=== PATIENT | female | born 1965 | race Caucasian/White ===

== ENCOUNTER 2018-03-16 19:51 | Emergency (ER) | payer SELFPAY ==
--- NOTE | 2018-03-16 20:45 | ER Document Report ---
ED Syncope and Near Syncope - General Chief Complaint: Near Syncope Stated Complaint: FAINT FEELING Time Seen by Provider: 03/16/18 20:29 Notes: Patient is a 52-year-old female that comes to the emergency department by EMS for chief complaint of near syncope. She states she stood up from sitting down on the couch and suddenly she became lightheaded, her vision became blurry, her states she became very pale. This did pass on its own. Patient denies getting chest pain, shortness of breath, diaphoresis, nausea, or vomiting. Patient denies history of the same. She states she has been eating and drinking normally. Patient does not see a primary care provider, does not take any medications, however she is very healthy generally with good exercise, she does not smoke, she drinks minimal wine, she states her only diagnosed medical problem is history of anemia. She did donate blood last month. She denies any current symptoms. TRAVEL OUTSIDE OF THE [place] IN LAST 30 DAYS: No Past Medical History - General Information source: Patient - Social History Smoking Status: Never Smoker Chew tobacco use (# tins/day): No Drug Abuse: None Lives with: Family Family History: Reviewed & Not Pertinent Patient has suicidal ideation: No Patient has homicidal ideation: No - Medical History Medical History: Negative Renal/ Medical History: Denies: Hx Peritoneal Dialysis Surgical Hx: Negative - Immunizations Immunizations up to date: Yes Hx Diphtheria, Pertussis, Tetanus Vaccination: Yes Review of Systems - Review of Systems Constitutional: No symptoms reported EENT: No symptoms reported Cardiovascular: See HPI Respiratory: No symptoms reported Gastrointestinal: No symptoms reported Genitourinary: No symptoms reported Female Genitourinary: No symptoms reported Musculoskeletal: No symptoms reported Skin: No symptoms reported Hematologic/Lymphatic: No symptoms reported Neurological/Psychological: See HPI Physical Exam - Vital signs Vitals: Resp Pulse Ox 17 98 03/16/18 19:59 03/16/18 19:59 - Notes Notes: GENERAL: Alert, interacts well. No acute distress. HEAD: Normocephalic, atraumatic. EYES: Pupils equal, round, and reactive to light. Extraocular movements intact. ENT: Oral mucosa moist, tongue midline. Oropharynx unremarkable. Airway patent. Nares patent, no nasal septal hematoma, TM's intact. NECK: Full range of motion. Supple. Trachea midline. LUNGS: Clear to auscultation bilaterally, no wheezes, rales, or rhonchi. No respiratory distress. HEART: Regular rate and rhythm. No murmur ABDOMEN: Soft, non-tender. Non-distended. Bowel sounds present in all 4 quadrants. GENITOURINARY: Deferred EXTREMITIES: Moves all 4 extremities spontaneously. No edema, normal radial and dorsalis pedis pulses bilaterally. No cyanosis. BACK: no cervical, thoracic, lumbar midline tenderness. No saddle anesthesia, normal distal neurovascular exam. NEUROLOGICAL: Alert and oriented x3. Normal speech. [cranial nerves II through XII grossly intact]. PSYCH: Normal affect, normal mood. SKIN: Warm, dry, normal turgor. No rashes or lesions noted. Course - Re-evaluation Re-evalutation: Chest x-ray unremarkable. CBC, chemistry, troponin unremarkable. Vital signs unremarkable other than one initially low blood pressure reading but this was repeated and found to be normal. Patient able to stand without any repeat symptoms. No current symptoms on evaluation. Troponin cycled and negative. I discussed workup in detail with patient. Her workup at this time is negative, she did not have any concerning symptoms such as chest pain, vomiting, she did not actually pass out. She has had no additional symptoms. She is very healthy and fit. I did discuss the importance of primary care follow-up and patient did state the understanding of this. I discussed return precautions in detail with patient and . Stable at time of discharge. - Vital Signs Vital signs: Temp Pulse Resp BP Pulse Ox 98.2 F 94 20 123/73 97 03/16/18 20:01 03/16/18 20:01 03/16/18 23:01 03/16/18 23:01 03/16/18 23:01 - Laboratory Result Diagrams: 03/16/18 20:45 03/16/18 20:45 Laboratory results interpreted by me: 03/16/18 21:57 Urine Glucose (UA) 150 H Urine Ketones TRACE H Urine Ascorbic Acid 40 H - EKG Interpretation by Me Additional EKG results interpreted by me: EKG sinus rhythm at a rate of 98, normal axis, no T wave inversions or ST segment changes in consecutive leads. Discharge - Discharge Clinical Impression: Near syncope Condition: Stable Disposition: HOME, SELF-CARE Additional Instructions: Your workup here including complete blood counts, blood chemistries, cardiac enzymes, chest x-ray, and EKG, do not show any concerning acute findings. Recommendations caution with position changes. You most likely had vasovagal syncope. See additional instructions below. Follow-up with primary care for additional evaluation and monitoring. Return if you worsen including passing out, chest pain, vomiting, or any other concerning or worsening symptoms. Syncope (fainting or near-fainting) can occur from many different health problems. Or it can be a simple fainting spell requiring no treatment. It is safe for you to go home, but further evaluation will likely be necessary. Your work-up may include tests for internal bleeding, heart disease, medication problems, or near-strokes. Tests are not always required, however, depending on the nature of your problem. The warning signs of an impending faint include: dizziness, lightheadedness, nausea, hot flashes, tingling, and weakness. If this happens, lay down and put your feet up, then wait until all of these symptoms have passed before standing up again. If these episodes become recurrent, or if you develop chest pain, heart palpitations, mental confusion, blurred vision, or headache, then you should call the physician, or go to the emergency room.
[2018-03-16 21:00] LABS: ABSOLUTE BASOPHILS # (AUTO) 0.1 10^3/uL (0.0-0.2); ABSOLUTE EOSINOPHILS # (AUTO) 0.2 10^3/uL (0.0-0.6); ABSOLUTE LYMPHOCYTES (AUTO) 1.9 10^3/uL (0.5-4.7); ABSOLUTE MONOCYTES (AUTO) 0.8 10^3/uL (0.1-1.4); ABSOLUTE NEUT (AUTO) 5.1 10^3/uL (1.7-8.2); BASOPHILS % (AUTO) 0.9 % (0-2); HEMATOCRIT 37.4 % (36.0-47.0); LYMPHOCYTES % (AUTO) 24.2 % (13-45); MEAN CORPUSCULAR HEMOGLOBIN 31.3 pg (27.0-33.4); MEAN CORPUSCULAR HGB CONC 34.6 g/dL (32.0-36.0); MEAN CORPUSCULAR VOLUME 91 fl (80-97); MONOCYTES % (AUTO) 9.5 % (3-13); PLATELET COUNT 255 10^3/uL (150-450); RED BLOOD COUNT 4.14 10^6/uL (3.72-5.28); RED CELL DISTRIBUTION WIDTH 12.8 % (11.5-14.0); SEGMENTED NEUTROPHILS % (AUTO) 63.4 % (42-78); TOTAL CELLS COUNTED % (AUTO) 100 %
[2018-03-16 21:13] LABS: ANION GAP 7 (5-19); BLOOD UREA NITROGEN 16 mg/dL (7-20); CALCIUM 9.6 mg/dL (8.4-10.2); CARBON DIOXIDE 28 mmol/L (22-30); CHLORIDE 103 mmol/L (98-107); GLUCOSE 98 mg/dL (75-110); POTASSIUM 4.3 mmol/L (3.6-5.0); SODIUM 138.3 mmol/L (137-145)
--- NOTE | 2018-03-16 21:44 | RADIOLOGY REPORT (SQ) ---
EXAM DESCRIPTION: XR CHEST 1 VIEW COMPLETED DATE/TME: 03/16/2018 20:42 CLINICAL HISTORY: 52 years, Female, near syncope COMPARISON: None. NUMBER OF VIEWS: 1 TECHNIQUE: Portable chest LIMITATIONS: None. FINDINGS: Heart size is normal. Lungs are clear. No pneumothorax IMPRESSION: Negative chest copyright 2010 [employer]- All Rights Reserved
[2018-03-16 22:18] LABS: APPEARANCE,URINE SLIGHTLY-CLOUDY; BILIRUBIN,URINE NEGATIVE (NEGATIVE); GLUCOSE, URINE 150 mg/dL (NEGATIVE); KETONES,URINE TRACE mg/dL (NEGATIVE); LEUKOCYTE ESTERASE,URINE NEGATIVE (NEGATIVE); NITRITE,URINE NEGATIVE (NEGATIVE); PROTEIN,URINE NEGATIVE (NEGATIVE); URINE SPECIFIC GRAVITY 1.026; UROBILINOGEN,URINE NEGATIVE mg/dL (<2.0)
[2018-03-16 22:24] LABS: COLOR,URINE YELLOW
[2018-03-16 23:59] VITALS: BP 123/73
--- NOTE | 2018-03-17 23:51 | EKG REPORT ---
SEVERITY:- ABNORMAL ECG - SINUS RHYTHM PROBABLE LVH WITH SECONDARY REPOL ABNRM : Confirmed by: Helder Mckeon 17-Mar-2018 23:50:16
== END 2018-03-17 01:04 | disposition home or self-care (01) ==
LOC: ER 19:51
DX: R42 Dizziness and giddiness (principal); H53.8 Other visual disturbances
CPT/HCPCS: 36415; 71045; 80048; 81001; 84484; 85025; 93005; 93010; 99284

== ENCOUNTER 2018-06-30 14:26 | Emergency (ER) | payer SELFPAY ==
[2018-06-30] MEDS ORDERED: LORAZEPAM 1 MG TABLET PO ONE (14:46)
--- NOTE | 2018-06-30 14:49 | ER Document Report ---
ED Medical Screen (RME) - General Chief Complaint: Palpitations Stated Complaint: HEART RACING Time Seen by Provider: 06/30/18 14:43 TRAVEL OUTSIDE OF THE [place] IN LAST 30 DAYS: No - HPI Notes: 06/30/18 14:48 Patient is a 53-year-old female with history of anemia who presents complaining of intermittent palpitations for 4 months. Patient states that when they occur they will last for 1 to 2 minutes with associated dizziness. Patient's last episode was about an hour and a half ago. Patient states that she can go a long period time without palpitations as well. She is not aware of anything that pr ecipitates her symptoms. She otherwise is eating and drinking without difficult he. She is urinating normally. Patient is currently a cinematic aside from feeling anxious. Denies MADRIGAL, fever, neck pain, URI, CP, syncope, dyspnea on exertion, wheezing, SOB, Abd pain, or rash. I have treated and performed a rapid initial assessment of this patient. A comprehensive ED assessment and evaluation of the patient, analysis of test results and completion of medical decision making process will be conducted by additional ED providers. PHYSICAL EXAMINATION: GENERAL: Well-appearing, well-nourished and in no acute distress. A&Ox4. Answers questions appropriately. LUNGS: Breath sounds clear to auscultation bilaterally and equal. No wheezes rales or rhonchi. HEART: Regular rate and rhythm without murmurs, rubs, gallops. Extremities: No cyanosis, clubbing, or edema b/l. NEUROLOGICAL: Normal speech, normal gait. PSYCH: Anxious - Related Data Allergies/Adverse Reactions: No Known Allergies Allergy (Verified 06/30/18 14:26) Past Medical History Renal/ Medical History: Denies: Hx Peritoneal Dialysis - Immunizations Immunizations up to date: Yes Hx Diphtheria, Pertussis, Tetanus Vaccination: Yes Physical Exam - Vital signs Vitals: Temp Pulse Resp BP Pulse Ox 98.1 F 109 H 22 H 144/76 H 100 06/30/18 14:34 06/30/18 14:34 06/30/18 14:34 06/30/18 14:34 06/30/18 14:34 Course - Vital Signs Vital signs: Temp Pulse Resp BP Pulse Ox 98.1 F 109 H 22 H 144/76 H 100 06/30/18 14:34 06/30/18 14:34 06/30/18 14:34 06/30/18 14:34 06/30/18 14:34
[2018-06-30 15:39] LABS: ABSOLUTE EOSINOPHILS # (AUTO) 0.1 10^3/uL (0.0-0.6); ABSOLUTE LYMPHOCYTES (AUTO) 1.4 10^3/uL (0.5-4.7); ABSOLUTE MONOCYTES (AUTO) 0.5 10^3/uL (0.1-1.4); ABSOLUTE NEUT (AUTO) 4.3 10^3/uL (1.7-8.2); BASOPHILS % (AUTO) 0.6 % (0-2); EOSINOPHILS % (AUTO) 1.4 % (0-6); HEMATOCRIT 40.6 % (36.0-47.0); HEMOGLOBIN 13.5 g/dL (12.0-15.5); LYMPHOCYTES % (AUTO) 22.7 % (13-45); MEAN CORPUSCULAR HGB CONC 33.2 g/dL (32.0-36.0); MEAN CORPUSCULAR VOLUME 91 fl (80-97); MONOCYTES % (AUTO) 7.9 % (3-13); PLATELET COUNT 227 10^3/uL (150-450); RED BLOOD COUNT 4.48 10^6/uL (3.72-5.28); SEGMENTED NEUTROPHILS % (AUTO) 67.4 % (42-78); TOTAL CELLS COUNTED % (AUTO) 100 %; WHITE BLOOD COUNT 6.3 10^3/uL (4.0-10.5)
--- NOTE | 2018-06-30 15:44 | RADIOLOGY REPORT (SQ) ---
EXAM DESCRIPTION: CHEST SINGLE VIEW COMPLETED DATE/TIME: 06/30/2018 3:33 pm REASON FOR STUDY: palpitations COMPARISON: 03/16/2018 EXAM PARAMETERS: NUMBER OF VIEWS: One view. TECHNIQUE: Single frontal radiographic view of the chest acquired. RADIATION DOSE: NA LIMITATIONS: None. FINDINGS: LUNGS AND PLEURA: No opacities, masses or pneumothorax. No pleural effusion. MEDIASTINUM AND HILAR STRUCTURES: No masses. Contour normal. HEART AND VASCULAR STRUCTURES: Heart normal in size. Normal vasculature. BONES: No acute findings. HARDWARE: None in the chest. OTHER: No other significant finding. IMPRESSION: No acute abnormality of the lungs. TECHNICAL DOCUMENTATION: JOB ID: [id number] [employer]- All Rights Reserved Reading location - IP/workstation name: [email or web address]
[2018-06-30 15:56] LABS: ALANINE AMINOTRANSFERASE 18 U/L (9-52); ALBUMIN 4.5 g/dL (3.5-5.0); ALKALINE PHOSPHATASE 57 U/L (38-126); ANION GAP 13 (5-19); ASPARTATE AMINO TRANSFERASE 19 U/L (14-36); BILIRUBIN,DIRECT 0.2 mg/dL (0.0-0.4); BILIRUBIN,TOTAL 0.4 mg/dL (0.2-1.3); BLOOD UREA NITROGEN 13 mg/dL (7-20); CALCIUM 9.4 mg/dL (8.4-10.2); CARBON DIOXIDE 25 mmol/L (22-30); CHLORIDE 102 mmol/L (98-107); GLUCOSE 114 mg/dL (75-110); PHOSPHORUS 2.6 mg/dL (2.5-4.5); POTASSIUM 4.1 mmol/L (3.6-5.0); SODIUM 139.5 mmol/L (137-145); TOTAL PROTEIN 7.7 g/dL (6.3-8.2)
[2018-06-30 15:57] LABS: APPEARANCE,URINE CLEAR; BILIRUBIN,URINE NEGATIVE (NEGATIVE); COLOR,URINE STRAW; GLUCOSE, URINE NEGATIVE (NEGATIVE); KETONES,URINE NEGATIVE (NEGATIVE); LEUKOCYTE ESTERASE,URINE NEGATIVE (NEGATIVE); NITRITE,URINE NEGATIVE (NEGATIVE); PROTEIN,URINE NEGATIVE (NEGATIVE); URINE SPECIFIC GRAVITY 1.006; UROBILINOGEN,URINE NEGATIVE mg/dL (<2.0)
--- NOTE | 2018-06-30 16:22 | EKG REPORT ---
SEVERITY:- OTHERWISE NORMAL ECG - SINUS TACHYCARDIA NONSPECIFIC ST-T CHANGES : Confirmed by: Helder Mckeon 30-Jun-2018 16:20:44
[2018-06-30] MEDS ORDERED: METOPROLOL TARTRATE 25 MG TABLET PO ONE (19:53)
--- NOTE | 2018-06-30 20:04 | ER Document Report ---
ED General - General Chief Complaint: Palpitations Stated Complaint: HEART RACING Time Seen by Provider: 06/30/18 14:43 Notes: Patient is a 53-year-old female without chronic medical problems who presents with several weeks of intermittent palpitations. Patient states that she will randomly feel her heart is racing. States that nothing seems to trigger these episodes and they go away spontaneously. No obvious triggering factor. No obvious alleviating factor. She regards her symptoms as being severe when present. She states that she had an episode earlier today while relaxing at home without any stress. Episode lasted approximately 30 minutes and then spontaneously resolved. Patient denies any history of similar symptoms prior to the past several weeks. She denies any associated chest pain, shortness of breath, lightheadedness or syncope. No weakness, numbness or confusion. No stimulant use, alcohol use, tobacco use. Has not seen her general physician regarding today's concerns. Denies any symptoms at the time of my assessment. TRAVEL OUTSIDE OF THE [place] IN LAST 30 DAYS: No - Related Data Allergies/Adverse Reactions: No Known Allergies Allergy (Verified 06/30/18 14:26) Past Medical History - General Information source: Patient - Social History Smoking Status: Never Smoker Chew tobacco use (# tins/day): No Frequency of alcohol use: Rare Drug Abuse: None Lives with: Spouse/Significant other Family History: Reviewed & Not Pertinent Patient has suicidal ideation: No Patient has homicidal ideation: No Renal/ Medical History: Denies: Hx Peritoneal Dialysis - Immunizations Immunizations up to date: Yes Hx Diphtheria, Pertussis, Tetanus Vaccination: Yes Review of Systems - Review of Systems Notes: Constitutional: Negative for fever. HENT: Negative for sore throat. Eyes: Negative for visual changes. Cardiovascular: Negative for chest pain. Positive palpitations Respiratory: Negative for shortness of breath. Gastrointestinal: Negative for abdominal pain, vomiting or diarrhea. Genitourinary: Negative for dysuria. Musculoskeletal: Negative for back pain. Skin: Negative for rash. Neurological: Negative for headaches, weakness or numbness. 10 point ROS negative except as marked above and in HPI. Physical Exam - Vital signs Vitals: Temp Pulse Resp BP Pulse Ox 98.1 F 109 H 22 H 144/76 H 100 06/30/18 14:34 06/30/18 14:34 06/30/18 14:34 06/30/18 14:34 06/30/18 14:34 Interpretation: Normal Notes: PHYSICAL EXAMINATION: GENERAL: Well-appearing, well-nourished and in no acute distress. HEAD: Atraumatic, normocephalic. EYES: Pupils equal round and reactive to light, extraocular movements intact, sclera anicteric, conjunctiva are normal. ENT: nares patent, oropharynx clear without exudates. Moist mucous membranes. NECK: Normal range of motion, supple without lymphadenopathy LUNGS: Breath sounds clear to auscultation bilaterally and equal. No wheezes rales or rhonchi. HEART: Regular rate and rhythm without murmurs ABDOMEN: Soft, nontender, normoactive bowel sounds. No guarding, no rebound. No masses appreciated. EXTREMITIES: Normal range of motion, no pitting or edema. No cyanosis. NEUROLOGICAL: No focal neurological deficits. Moves all extremities spontaneously and on command. PSYCH: Normal mood, normal affect. SKIN: Warm, Dry, normal turgor, no rashes or lesions noted. Course - Re-evaluation Re-evalutation: 06/30/18 19:59 Patient presents with palpitations but is in no acute distress. Vitals within normal limits at time of arrival. EKG unremarkable with a sinus tachycardia. Laboratories are unremarkable. Patient denies any chest pain, shortness of breath, or vomiting. At this time based on exam and history do not suspect a new onset arrhythmia, ACS, acute pulmonary embolus, aortic dissection. Patient encouraged to follow-up with their primary care physician as well as cardiology and a referral has been provided. I have started her on metoprolol 12.5 mg twice daily at this time will discharge with return precautions and follow-up recommendations. Verbal discharge instructions given a the bedside and opportunity for questions given. Medication warnings reviewed. Patient is in agreement with this plan and has verbalized understanding of return precautions and the need for primary care follow-up in the next 24-72 hours. - Vital Signs Vital signs: Temp Pulse Resp BP Pulse Ox 98.1 F 109 H 23 H 119/62 98 06/30/18 14:34 06/30/18 14:34 06/30/18 19:41 06/30/18 19:41 06/30/18 19:41 - Laboratory Result Diagrams: 06/30/18 15:18 06/30/18 15:18 Laboratory results interpreted by me: 06/30/18 06/30/18 14:54 15:18 Glucose 114 H Urine Ascorbic Acid 40 H - Diagnostic Test Radiology reviewed: Image reviewed, Reports reviewed Radiology results interpreted by me: 06/30/18 19:59 Chest x-ray: No acute infiltrate or pneumothorax - EKG Interpretation by Me Additional EKG results interpreted by me: 06/30/18 20:00 Sinus tachycardia, rate 115. No ST elevations or depressions. QTC is 460. Discharge - Discharge Clinical Impression: Palpitations, Sinus tachycardia Condition: Good Disposition: HOME, SELF-CARE Additional Instructions: Please follow-up with your primary care doctor or a hard rock drill operator regarding your palpitations. Return if you develop chest pain, shortness of breath, pass out, or have any other symptoms that are worrisome to you. Take medication metoprolol as prescribed. Prescriptions: Metoprolol Tartrate [Lopressor 25 mg Tablet] 12.5 mg PO Q12 #30 tab Referrals: SANDIP HAMM MD [ACTIVE STAFF] - Follow up in 3-5 days
[2018-06-30 20:17] VITALS: BP 124/76
== END 2018-06-30 20:30 | disposition home or self-care (01) ==
LOC: ER 14:26
DX: R00.2 Palpitations (principal); R00.0 Tachycardia, unspecified
CPT/HCPCS: 36415; 71045; 80053; 81001; 83735; 84100; 84443; 85025; 93005; 93010; 99285

== ENCOUNTER 2018-07-23 20:11 | Emergency (ER) | payer OTHER ==
--- NOTE | 2018-07-23 21:09 | ER Document Report ---
ED Medical Screen (RME) - General Chief Complaint: Palpitations Stated Complaint: RAPID HEART BEAT Time Seen by Provider: 07/23/18 21:08 Notes: Patient is a 53-year-old female who presents emergency department with a chief complaint of palpitations. She states that she has had these and was seen on June 30 and was put on metoprolol for her palpitations. She states that she is taking her medications regularly and felt 3 episodes of heart palpitations today. She denies any chest pain, difficulty breathing, but does feel like she is going to "pass out." Exam: S1-S2, tachycardic. I have greeted and performed a rapid initial assessment of this patient. A comprehensive ED assessment and evaluation of the patient, analysis of test results and completion of medical decision making process will be conducted by an additional ED providers. TRAVEL OUTSIDE OF THE [place] IN LAST 30 DAYS: No - Related Data Allergies/Adverse Reactions: No Known Allergies Allergy (Verified 06/30/18 14:26) Past Medical History - Social History Chew tobacco use (# tins/day): No Frequency of alcohol use: None Drug Abuse: None Renal/ Medical History: Denies: Hx Peritoneal Dialysis - Immunizations Immunizations up to date: Yes Hx Diphtheria, Pertussis, Tetanus Vaccination: Yes Physical Exam - Vital signs Vitals: Temp Pulse Resp BP Pulse Ox 98.2 F 104 H 18 141/82 H 97 07/23/18 20:26 07/23/18 20:26 07/23/18 20:26 07/23/18 20:26 07/23/18 20:26 Course - Vital Signs Vital signs: Temp Pulse Resp BP Pulse Ox 98.2 F 104 H 18 141/82 H 97 07/23/18 20:26 07/23/18 20:26 07/23/18 20:26 07/23/18 20:26 07/23/18 20:26
[2018-07-23 21:37] LABS: ABSOLUTE BASOPHILS # (AUTO) 0.1 10^3/uL (0.0-0.2); ABSOLUTE EOSINOPHILS # (AUTO) 0.1 10^3/uL (0.0-0.6); ABSOLUTE LYMPHOCYTES (AUTO) 1.6 10^3/uL (0.5-4.7); ABSOLUTE MONOCYTES (AUTO) 0.7 10^3/uL (0.1-1.4); ABSOLUTE NEUT (AUTO) 8.4 10^3/uL (1.7-8.2); BASOPHILS % (AUTO) 0.5 % (0-2); EOSINOPHILS % (AUTO) 1.1 % (0-6); HEMATOCRIT 38.7 % (36.0-47.0); HEMOGLOBIN 13.1 g/dL (12.0-15.5); MEAN CORPUSCULAR HEMOGLOBIN 30.7 pg (27.0-33.4); MEAN CORPUSCULAR HGB CONC 33.8 g/dL (32.0-36.0); MEAN CORPUSCULAR VOLUME 91 fl (80-97); MONOCYTES % (AUTO) 6.2 % (3-13); PLATELET COUNT 242 10^3/uL (150-450); RED BLOOD COUNT 4.26 10^6/uL (3.72-5.28); RED CELL DISTRIBUTION WIDTH 13.1 % (11.5-14.0); SEGMENTED NEUTROPHILS % (AUTO) 77.2 % (42-78); TOTAL CELLS COUNTED % (AUTO) 100 %; WHITE BLOOD COUNT 10.9 10^3/uL (4.0-10.5)
[2018-07-23 21:57] LABS: ALANINE AMINOTRANSFERASE 20 U/L (9-52); ALBUMIN 4.2 g/dL (3.5-5.0); ALKALINE PHOSPHATASE 46 U/L (38-126); ANION GAP 6 (5-19); ASPARTATE AMINO TRANSFERASE 22 U/L (14-36); BILIRUBIN,DIRECT 0.1 mg/dL (0.0-0.4); BILIRUBIN,TOTAL 0.3 mg/dL (0.2-1.3); BLOOD UREA NITROGEN 11 mg/dL (7-20); CALCIUM 10.1 mg/dL (8.4-10.2); CARBON DIOXIDE 30 mmol/L (22-30); CHLORIDE 101 mmol/L (98-107); GLUCOSE 99 mg/dL (75-110); POTASSIUM 3.9 mmol/L (3.6-5.0); SODIUM 137.4 mmol/L (137-145); TOTAL PROTEIN 7.2 g/dL (6.3-8.2)
--- NOTE | 2018-07-23 21:58 | RADIOLOGY REPORT (SQ) ---
EXAM DESCRIPTION: XR CHEST 1 VIEW COMPLETED DATE/TME: 07/23/2018 21:11 CLINICAL HISTORY: 53 years, Female, palpitations COMPARISON: 06/30/2018 NUMBER OF VIEWS: 1 TECHNIQUE: Single PA view of the chest was obtained. LIMITATIONS: None. FINDINGS: Unremarkable cardiac and mediastinal silhouette. Heart size is normal. Lungs are clear without focal opacity, pneumothorax or pleural effusions. The visualized bones are within normal limits. IMPRESSION: No acute cardiopulmonary abnormalities. copyright 2010 [employer]- All Rights Reserved
[2018-07-24 01:42] LABS: APPEARANCE,URINE CLEAR; BILIRUBIN,URINE NEGATIVE (NEGATIVE); COLOR,URINE YELLOW; GLUCOSE, URINE NEGATIVE (NEGATIVE); KETONES,URINE NEGATIVE (NEGATIVE); LEUKOCYTE ESTERASE,URINE NEGATIVE (NEGATIVE); NITRITE,URINE NEGATIVE (NEGATIVE); PROTEIN,URINE NEGATIVE (NEGATIVE); URINE SPECIFIC GRAVITY 1.013; UROBILINOGEN,URINE NEGATIVE mg/dL (<2.0)
--- NOTE | 2018-07-24 01:45 | ER Document Report ---
ED General - General Chief Complaint: Palpitations Stated Complaint: RAPID HEART BEAT Time Seen by Provider: 07/23/18 21:08 Primary Care Provider: MICHEL KANG MD [[facility]] - 07/24/18 Notes: Patient is a 53-year-old female presents with complaint of palpitations and sensation of rapid heartbeat. She does have a pulse oximeter that she puts in her finger whenever she feels like her heart is racing. She says it happens randomly. She does admit that she is under a lot of stress in regards to not getting along with her 's family as well as her mother being sick. She also says she is under a lot of stress because she is perimenopausal. She is unsure if these reactions that she is having is all stress related or if there is something more. She is concerned that there could be something more going on this not being found. She was seen here approximately week ago by Dr. Rasmussen. She was placed metoprolol. She says her heart rate continues to have periods where it runs fast despite the metoprolol. She has an appoint with Dr. Engle, learning technologist, on August 02, but she feels that she cannot wait that long before being evaluated by learning technologist because she is concerned about her rapid heartbeat. She says that today her heart rate got as fast as 154 on her finger pulse oximeter. She denies any chest pain. No shortness of breath during these episodes. These episodes last a few minutes and then go away. No other complaints at this time. She is very healthy does not take any medi cations other than the metoprolol that was prescribed by Dr. Rasmussen. TRAVEL OUTSIDE OF THE [place] IN LAST 30 DAYS: No - Related Data Allergies/Adverse Reactions: No Known Allergies Allergy (Verified 06/30/18 14:26) Past Medical History - Social History Smoking Status: Never Smoker Chew tobacco use (# tins/day): No Frequency of alcohol use: None Drug Abuse: None Family History: Reviewed & Not Pertinent Patient has suicidal ideation: No Patient has homicidal ideation: No Renal/ Medical History: Denies: Hx Peritoneal Dialysis - Immunizations Immunizations up to date: Yes Hx Diphtheria, Pertussis, Tetanus Vaccination: Yes Review of Systems - Review of Systems Notes: My Normal Review Basic REVIEW OF SYSTEMS: CONSTITUTIONAL : Denies fever, chills, or sweats. Denies recent illness. EENT: Denies eye, ear, throat, or mouth pain or symptoms. Denies nasal or sinus congestion. CARDIOVASCULAR: Denies chest pain. Palpitations RESPIRATORY: Denies cough, cold, or chest congestion. Denies shortness of breath, difficulty breathing, or wheezing. GASTROINTESTINAL: Denies abdominal pain. Denies nausea, vomiting, or diarrhea. MUSCULOSKELETAL: Denies neck or back pain or joint pain or swelling. SKIN: Denies rash or skin lesions. NEUROLOGICAL: Denies altered mental status or loss of consciousness. ALL OTHER SYSTEMS REVIEWED AND NEGATIVE. Physical Exam - Vital signs Vitals: Temp Pulse Resp BP Pulse Ox 98.2 F 104 H 18 141/82 H 97 07/23/18 20:26 07/23/18 20:26 07/23/18 20:26 07/23/18 20:26 07/23/18 20:26 - Notes Notes: General Appearance: Well nourished, alert, cooperative, no acute distress, no obvious discomfort. Well-appearing Vitals: reviewed, See vital signs table. Eyes: PERRL, EOMI, Conjuctiva clear Mouth: No decreasd moisture Neck: Supple, no neck tenderness Lungs: No wheezing, No rales, No rhonci, No accessory muscle use, good air exchange bilaterally. Heart: Normal rate, Regular rythm, No murmur, no rub Abdomen: Normal BS, soft, No rigidity, No abdominal tenderness, No guarding, no rebound, no abdominal masses, no organomegaly Extremities: strength 5/5 in all extremities, good pulses in all extremities, no swelling or tenderness in the extremities, no edema. Skin: warm, dry, appropriate color, no rash Neuro: speech clear, oriented x 3, normal affect, responds appropriately to q uestions. Course - Re-evaluation Re-evalutation: 07/24/18 07:03 Patient is well-appearing on exam. She is very emotional and anxious at times during discussion. I do suspect anxiety probably is playing a role in her symptoms; however, she could also be very anxious because she is having the palpitations. I did talk about starting a low-dose of Klonopin which she agrees to do. I do agree that she does need a Holter monitor and therefore I did call and speak with her learning technologist on-call, Dr. Kang, who took down the patient's phone number and information and said he would have the office call her this morning to have her come in today to have a Holter monitor placed and to evaluate the patient. I explained plan to the patient and she is very happy with this plan. I do not suspect life-threatening cause behind her palpitations that she does not have any chest pain, shortness of breath, or syncope associated with the palpitations. She had blood work performed including thyroid studies which have all been negative. Encourage patient return to ER if she has severe chest pain, difficulty breathing, palpitations lasting more than 5 minutes. Patient agrees with plan will be discharged home. Dictation of this chart was performed using voice recognition software; therefore, there may be some unintended grammatical errors. - Vital Signs Vital signs: Temp Pulse Resp BP Pulse Ox 97.9 F 79 18 126/79 H 97 07/24/18 02:42 07/24/18 02:42 07/23/18 20:26 07/24/18 02:42 07/24/18 02:42 - Laboratory Result Diagrams: 07/23/18 21:15 07/23/18 21:15 Laboratory results interpreted by me: 07/23/18 21:15 WBC 10.9 H Absolute Neutrophils 8.4 H - EKG Interpretation by Me Additional EKG results interpreted by me: 07/24/18 01:44 EKG is reviewed and interpreted by me. EKG shows sinus tachycardia with a rate of [address] segment elevation. Patient has mild ST segment depression in lead V3 which is unchanged comparison to her previous EKG from June 30, 2018. WV interval, QRS duration, QTc intervals are within normal range. Discharge - Discharge Clinical Impression: Palpitations Condition: Good Disposition: HOME, SELF-CARE Additional Instructions: You should be hearing form Dr. Kang, learning technologist, later today to get a time to come to his office to be seen and have a holter monitor placed. I have given him your home phone number so please make sure that someone is by your home phone for when he calls today. If you do not hear from him by noon you should call his office phone number which I have placed in your discharge paperwork. I have prescribed you Klonopin. This medication helps with anxiety. This medication sometimes will make you a little bit sleepy however I have placed you on a very low dose and therefore these effects should be mild. Please do not drink more than half a glass of wine when taking this medication. Please have a low threshold to return to ER if you have chest pain, difficulty breathing, or palpitations lasting more than 5 minutes. Prescriptions: Clonazepam [Klonopin] 0.5 mg PO BID #14 tablet Referrals: MICHEL KANG MD [[facility]] - 07/24/18
[2018-07-24 02:47] VITALS: BP 126/79
[2018-07-24] MEDS ORDERED: CLONAZEPAM 1 MG TABLET PO ONE (03:03)
--- NOTE | 2018-07-24 07:47 | EKG REPORT ---
SEVERITY:- ABNORMAL ECG - SINUS TACHYCARDIA PROBABLE LVH WITH SECONDARY REPOL ABNRM : Confirmed by: Mamta Cohn MD 24-Jul-2018 07:46:48
== END 2018-07-24 03:08 | disposition home or self-care (01) ==
LOC: ER 20:11
DX: R00.2 Palpitations (principal)
CPT/HCPCS: 36415; 71045; 80053; 81001; 85025; 93005; 93010; 99285

== ENCOUNTER 2018-10-08 00:44 | Emergency (ER) | payer OTHER ==
[2018-10-08 01:14] LABS: APPEARANCE,URINE CLEAR; BILIRUBIN,URINE NEGATIVE (NEGATIVE); COLOR,URINE COLORLESS; GLUCOSE, URINE NEGATIVE (NEGATIVE); KETONES,URINE NEGATIVE (NEGATIVE); LEUKOCYTE ESTERASE,URINE NEGATIVE (NEGATIVE); NITRITE,URINE NEGATIVE (NEGATIVE); PROTEIN,URINE NEGATIVE (NEGATIVE); URINE SPECIFIC GRAVITY 1.003; UROBILINOGEN,URINE NEGATIVE mg/dL (<2.0)
--- NOTE | 2018-10-08 01:19 | ER Document Report ---
ED General - General Chief Complaint: Abdominal Pain >50 Stated Complaint: SIDE PAIN Time Seen by Provider: 10/08/18 01:10 Mode of Arrival: Ambulatory Information source: Patient TRAVEL OUTSIDE OF THE [place] IN LAST 30 DAYS: No - HPI Notes: Patient states she is having right upper quadrant abdominal pain. It is sharp. It radiates to her back. Is been intermittent. Nothing makes it better or worse. She states that she currently has no pain but she did have some pain earlier tonight. Had some nausea but no vomiting or diarrhea. No fevers. No chest pain or shortness of breath. - Related Data Allergies/Adverse Reactions: No Known Allergies Allergy (Verified 06/30/18 14:26) Past Medical History - General Information source: Patient - Social History Smoking Status: Never Smoker Frequency of alcohol use: None Drug Abuse: None Family History: Reviewed & Not Pertinent Renal/ Medical History: Denies: Hx Peritoneal Dialysis - Immunizations Immunizations up to date: Yes Hx Diphtheria, Pertussis, Tetanus Vaccination: Yes Review of Systems - Review of Systems Cardiovascular: denies: Chest pain, Dyspnea Respiratory: denies: Cough, Short of breath Gastrointestinal: Abdominal pain, Nausea -: Yes All other systems reviewed and negative Physical Exam - Vital signs Vitals: Temp Pulse Resp BP Pulse Ox 98.1 F 78 17 141/70 H 98 10/08/18 00:50 10/08/18 00:50 10/08/18 00:50 10/08/18 00:50 10/08/18 00:50 Interpretation: Normal - General General appearance: Appears well, Alert - HEENT Head: Normocephalic, Atraumatic Eyes: Normal Pupils: PERRL - Respiratory Respiratory status: No respiratory distress Chest status: Nontender Breath sounds: Normal Chest palpation: Normal - Cardiovascular Rhythm: Regular Heart sounds: Normal auscultation Murmur: No - Abdominal Inspection: Normal Distension: No distension Bowel sounds: Normal Tenderness: Nontender Organomegaly: No organomegaly - Back Back: Normal, Nontender - Extremities General upper extremity: Normal inspection, Nontender, Normal color, Normal ROM, Normal temperature General lower extremity: Normal inspection, Nontender, Normal color, Normal ROM, Normal temperature, Normal weight bearing. No: Kim's sign - Neurological Neuro grossly intact: Yes Cognition: Normal Orientation: AAOx4 [place] Coma Scale Eye Opening: Spontaneous Larry Coma Scale Verbal: Oriented Larry Coma Scale Motor: Obeys Commands [place] Coma Scale Total: 15 Speech: Normal Motor strength normal: LUE, RUE, LLE, RLE Sensory: Normal - Psychological Associated symptoms: Normal affect, Normal mood - Skin Skin Temperature: Warm Skin Moisture: Dry Skin Color: Normal Course - Re-evaluation Re-evalutation: 10/08/18 02:25 Patient presented with right upper quadrant pain that had resolved by the time she arrived in emergency department. Her laboratory evaluation is unremarkable. I have instructed the patient to contact her primary care physician for outpatient ultrasound. - Vital Signs Vital signs: Temp Pulse Resp BP Pulse Ox 98.1 F 78 17 141/70 H 98 10/08/18 00:50 10/08/18 00:50 10/08/18 00:50 10/08/18 00:50 10/08/18 00:50 - Laboratory Result Diagrams: 10/08/18 01:29 10/08/18 01:29 Discharge - Discharge Clinical Impression: Right upper quadrant abdominal pain Condition: Stable Disposition: HOME, SELF-CARE Instructions: Abdominal Pain ([facility]) Additional Instructions: Please call your primary doctor as soon as possible to discuss ultrasound of your gallbladder. Prescriptions: Tramadol HCl [Ultram 50 mg Tablet] 50 mg PO Q6 3 Days #12 tab
[2018-10-08 01:37] LABS: ABSOLUTE EOSINOPHILS # (AUTO) 0.2 10^3/uL (0.0-0.6); ABSOLUTE LYMPHOCYTES (AUTO) 2.2 10^3/uL (0.5-4.7); ABSOLUTE MONOCYTES (AUTO) 0.4 10^3/uL (0.1-1.4); BASOPHILS % (AUTO) 0.7 % (0-2); EOSINOPHILS % (AUTO) 3.6 % (0-6); HEMATOCRIT 38.8 % (36.0-47.0); HEMOGLOBIN 13.1 g/dL (12.0-15.5); LYMPHOCYTES % (AUTO) 37.5 % (13-45); MEAN CORPUSCULAR HEMOGLOBIN 30.4 pg (27.0-33.4); MEAN CORPUSCULAR HGB CONC 33.7 g/dL (32.0-36.0); MEAN CORPUSCULAR VOLUME 90 fl (80-97); MONOCYTES % (AUTO) 7.3 % (3-13); PLATELET COUNT 237 10^3/uL (150-450); RED BLOOD COUNT 4.31 10^6/uL (3.72-5.28); RED CELL DISTRIBUTION WIDTH 12.5 % (11.5-14.0); SEGMENTED NEUTROPHILS % (AUTO) 50.9 % (42-78); TOTAL CELLS COUNTED % (AUTO) 100 %; WHITE BLOOD COUNT 5.9 10^3/uL (4.0-10.5)
[2018-10-08 01:59] LABS: ALKALINE PHOSPHATASE 53 U/L (38-126); ANION GAP 7 (5-19); ASPARTATE AMINO TRANSFERASE 27 U/L (14-36); BILIRUBIN,DIRECT 0.2 mg/dL (0.0-0.4); BILIRUBIN,TOTAL 0.5 mg/dL (0.2-1.3); BLOOD UREA NITROGEN 18 mg/dL (7-20); CALCIUM 9.8 mg/dL (8.4-10.2); CARBON DIOXIDE 29 mmol/L (22-30); CHLORIDE 102 mmol/L (98-107); GLUCOSE 104 mg/dL (75-110); POTASSIUM 4.4 mmol/L (3.6-5.0)
[2018-10-08 02:41] VITALS: BP 121/71
== END 2018-10-08 02:40 | disposition home or self-care (01) ==
LOC: ER 00:44
DX: R10.11 Right upper quadrant pain (principal); R11.0 Nausea
CPT/HCPCS: 36415; 80053; 81001; 85025

== ENCOUNTER 2018-10-24 19:56 | Emergency (ER) | payer OTHER ==
--- NOTE | 2018-10-24 21:09 | ER Document Report ---
ED Medical Screen (RME) - General Chief Complaint: Chest Pain Stated Complaint: RAPID HEART BEAT Time Seen by Provider: 10/24/18 20:52 Notes: Patient is a 53-year-old female who presents emergency department with a chief complaint of rapid heart rate. She has had her symptoms for the past 3 days. She also notes that she has some chest pain. She checked her heart rate home with her home pulse ox and her heart rate was 152. Her sap business objects developer is Dr. Engle with [facility]. Exam: S1, S2. 12-lead EKG shows sinus tachycardia with a heart rate of 104. I have greeted and performed a rapid initial assessment of this patient. A comprehensive ED assessment and evaluation of the patient, analysis of test results and completion of medical decision making process will be conducted by an additional ED providers. TRAVEL OUTSIDE OF THE [place] IN LAST 30 DAYS: No - Related Data Allergies/Adverse Reactions: No Known Allergies Allergy (Verified 06/30/18 14:26) Past Medical History - Social History Chew tobacco use (# tins/day): No Frequency of alcohol use: Social Drug Abuse: None Renal/ Medical History: Denies: Hx Peritoneal Dialysis - Immunizations Immunizations up to date: Yes Hx Diphtheria, Pertussis, Tetanus Vaccination: Yes
[2018-10-24 21:37] LABS: ABSOLUTE BASOPHILS # (AUTO) 0.1 10^3/uL (0.0-0.2); ABSOLUTE EOSINOPHILS # (AUTO) 0.1 10^3/uL (0.0-0.6); ABSOLUTE LYMPHOCYTES (AUTO) 1.8 10^3/uL (0.5-4.7); ABSOLUTE MONOCYTES (AUTO) 0.5 10^3/uL (0.1-1.4); ABSOLUTE NEUT (AUTO) 3.9 10^3/uL (1.7-8.2); BASOPHILS % (AUTO) 1.2 % (0-2); EOSINOPHILS % (AUTO) 1.3 % (0-6); HEMATOCRIT 40.8 % (36.0-47.0); HEMOGLOBIN 13.8 g/dL (12.0-15.5); LYMPHOCYTES % (AUTO) 28.5 % (13-45); MEAN CORPUSCULAR HEMOGLOBIN 30.5 pg (27.0-33.4); MEAN CORPUSCULAR HGB CONC 33.9 g/dL (32.0-36.0); MEAN CORPUSCULAR VOLUME 90 fl (80-97); MONOCYTES % (AUTO) 8.2 % (3-13); PLATELET COUNT 228 10^3/uL (150-450); RED BLOOD COUNT 4.53 10^6/uL (3.72-5.28); RED CELL DISTRIBUTION WIDTH 12.4 % (11.5-14.0); SEGMENTED NEUTROPHILS % (AUTO) 60.8 % (42-78); TOTAL CELLS COUNTED % (AUTO) 100 %; WHITE BLOOD COUNT 6.5 10^3/uL (4.0-10.5)
--- NOTE | 2018-10-24 21:48 | RADIOLOGY REPORT (SQ) ---
EXAM DESCRIPTION: [facility]: XR CHEST 1 VIEW CLINICAL HISTORY: 53 years Female, palpitations COMPARISON: 07/23/2018 FINDINGS: Lungs are clear, with no focal infiltrate, pneumothorax, or pleural effusion. Mediastinum is within normal limits for this positioning. Bony structures are unremarkable. IMPRESSION: 1. No acute pulmonary findings.
[2018-10-24 21:57] LABS: ALBUMIN 4.6 g/dL (3.5-5.0); ALKALINE PHOSPHATASE 52 U/L (38-126); ANION GAP 8 (5-19); ASPARTATE AMINO TRANSFERASE 24 U/L (14-36); BILIRUBIN,TOTAL 0.4 mg/dL (0.2-1.3); BLOOD UREA NITROGEN 15 mg/dL (7-20); CALCIUM 9.9 mg/dL (8.4-10.2); CARBON DIOXIDE 30 mmol/L (22-30); CHLORIDE 101 mmol/L (98-107); CREATINE KINASE 65 U/L (30-135); GLUCOSE 101 mg/dL (75-110); POTASSIUM 4.3 mmol/L (3.6-5.0); TOTAL PROTEIN 7.7 g/dL (6.3-8.2)
[2018-10-24 22:19] LABS: TROPONIN I < 0.012 ng/mL
--- NOTE | 2018-10-24 22:32 | ER Document Report ---
ED Cardiac - General Chief Complaint: Chest Pain Stated Complaint: RAPID HEART BEAT Time Seen by Provider: 10/24/18 20:52 Information source: Patient TRAVEL OUTSIDE OF THE [place] IN LAST 30 DAYS: No - HPI Notes: This is a 53-year-old female who presents today with a complaint of palpitations that started earlier today. She states that her heart is racing. Patient notes that she is under a lot of stress. Her favorite aunt today. She also found out that one of her good friends was diagnosed with a massive heart attack today. She states she is "tore up inside." Patient has had previous episodes of palpitations and has had a recent complete work-up including Holter monitor and echo which was unremarkable. She does take medicine for her heart rate she tells me. She denies any chest pain. She denies any dyspnea. She denies any fever or chills. She describes her symptoms as moderate. Patient states that she thinks is all in her nerves. She does take a "chill pill." - Related Data Allergies/Adverse Reactions: No Known Allergies Allergy (Verified 06/30/18 14:26) Past Medical History - Social History Smoking Status: Never Smoker Chew tobacco use (# tins/day): No Frequency of alcohol use: Social Drug Abuse: None Family History: Reviewed & Not Pertinent Patient has suicidal ideation: No Patient has homicidal ideation: No Renal/ Medical History: Denies: Hx Peritoneal Dialysis - Immunizations Immunizations up to date: Yes Hx Diphtheria, Pertussis, Tetanus Vaccination: Yes Review of Systems - Review of Systems Constitutional: denies: Fever Cardiovascular: Palpitations, Heart racing. denies: Chest pain, Orthopnea, Dyspnea, Syncope Gastrointestinal: denies: Abdominal pain, Vomiting, Black stools, Rectal bleeding Musculoskeletal: No symptoms reported -: Yes All other systems reviewed and negative Physical Exam - Vital signs Vitals: Temp Pulse Resp BP Pulse Ox 97.8 F 76 16 132/77 H 99 10/24/18 20:21 10/24/18 20:21 10/24/18 20:21 10/24/18 20:21 10/24/18 20:21 - General General appearance: Appears well - Respiratory Respiratory status: No respiratory distress Chest status: Nontender - Cardiovascular Rhythm: Regular Heart sounds: Normal auscultation Murmur: Yes - Abdominal Inspection: Normal Distension: No distension Bowel sounds: Normal Tenderness: Nontender - Extremities General upper extremity: Normal inspection, Nontender. No: Edema - Neurological Cognition: Normal Orientation: AAOx4 Larry Coma Scale Verbal: Oriented - Nonfocal neurologic exam. GCS is 15. - Psychological Associated symptoms: Anxious Course - Re-evaluation Re-evalutation: 10/24/18 22:33 Differential diagnosis includes anxiety versus stress reaction versus electrolyte abnormality versus arrhythmia. Will check with labs including a thyroid function. There is no clinical suspicion for acute coronary syndrome. EKG shows normal sinus rhythm at 82 bpm. Left ventricular hypertrophy. NO acute injury pattern 10/25/18 00:05 Patient reevaluated patient is doing well. Labs unremarkable. Heart rate within normal limits. She is stable for discharge. Patient counseled. Follow- up discussed. - Vital Signs Vital signs: Temp Pulse Resp BP Pulse Ox 97.8 F 76 16 132/77 H 98 10/24/18 20:21 10/24/18 20:21 10/24/18 20:21 10/24/18 20:21 10/24/18 21:43 - Laboratory Result Diagrams: 10/24/18 21:14 10/24/18 21:14 Discharge - Discharge Clinical Impression: Palpitation Condition: Good Disposition: HOME, SELF-CARE Instructions: Palpitations (Irregular or Rapid Heartrate) ([facility]) Additional Instructions: Follow-up with your doctor. Return if worse or concerns.
[2018-10-24 23:18] LABS: FREE T4 (FREE THYROXINE) 0.79 ng/dL (0.78-2.19)
[2018-10-24 23:32] LABS: THYROID STIMULATING HORMONE 4.14 uIU/mL (0.47-4.68)
--- NOTE | 2018-10-24 23:56 | EKG REPORT ---
SEVERITY:- ABNORMAL ECG - SINUS RHYTHM LEFT VENTRICULAR HYPERTROPHY : Confirmed by: Rito Diaz MD 24-Oct-2018 23:55:39
[2018-10-25 00:30] VITALS: BP 130/71
== END 2018-10-25 00:20 | disposition home or self-care (01) ==
LOC: ER 19:56
DX: R00.2 Palpitations (principal); I51.7 Cardiomegaly; Z63.4 Disappearance and death of family member; Z79.899 Other long term (current) drug therapy
CPT/HCPCS: 36415; 71045; 80053; 82550; 82553; 84439; 84443; 84484; 85025; 93005; 93010; 99285

== ENCOUNTER 2018-11-17 21:20 | Emergency (ER) | payer OTHER ==
[2018-11-17 22:19] LABS: ABSOLUTE EOSINOPHILS # (AUTO) 0.2 10^3/uL (0.0-0.6); ABSOLUTE MONOCYTES (AUTO) 0.5 10^3/uL (0.1-1.4); ABSOLUTE NEUT (AUTO) 3.4 10^3/uL (1.7-8.2); BASOPHILS % (AUTO) 0.7 % (0-2); EOSINOPHILS % (AUTO) 2.1 % (0-6); HEMATOCRIT 39.6 % (36.0-47.0); HEMOGLOBIN 13.5 g/dL (12.0-15.5); LYMPHOCYTES % (AUTO) 42.2 % (13-45); MEAN CORPUSCULAR HEMOGLOBIN 30.5 pg (27.0-33.4); MEAN CORPUSCULAR VOLUME 90 fl (80-97); MONOCYTES % (AUTO) 7.3 % (3-13); PLATELET COUNT 219 10^3/uL (150-450); RED BLOOD COUNT 4.42 10^6/uL (3.72-5.28); RED CELL DISTRIBUTION WIDTH 12.2 % (11.5-14.0); SEGMENTED NEUTROPHILS % (AUTO) 47.7 % (42-78); TOTAL CELLS COUNTED % (AUTO) 100 %; WHITE BLOOD COUNT 7.1 10^3/uL (4.0-10.5)
[2018-11-17 22:42] LABS: ALBUMIN 4.1 g/dL (3.5-5.0); ALKALINE PHOSPHATASE 45 U/L (38-126); ANION GAP 9 (5-19); ASPARTATE AMINO TRANSFERASE 26 U/L (14-36); BILIRUBIN,DIRECT 0.1 mg/dL (0.0-0.4); BILIRUBIN,TOTAL 0.2 mg/dL (0.2-1.3); BLOOD UREA NITROGEN 16 mg/dL (7-20); CALCIUM 9.7 mg/dL (8.4-10.2); CARBON DIOXIDE 29 mmol/L (22-30); CHLORIDE 101 mmol/L (98-107); GLUCOSE 101 mg/dL (75-110); POTASSIUM 4.5 mmol/L (3.6-5.0); TOTAL PROTEIN 7.3 g/dL (6.3-8.2)
--- NOTE | 2018-11-17 23:12 | ER Document Report ---
ED GI/ - General Chief Complaint: Abdominal Pain Stated Complaint: ABDOMINAL PAIN Time Seen by Provider: 11/17/18 22:57 Primary Care Provider: CAESAR ZAVALA MD [ACTIVE STAFF] - Follow up as needed Notes: Patient is a 53-year-old female that comes emergency department for chief complaint of intermittent epigastric pain that is worse with food for the past couple of months. Pain became much worse last night and she could not eat anything, it did subside and she was able to eat this morning but the pain returned this evening. She denies vomiting. Pain was the worst when she ate a slice of pizza. She denies flank pain, fever/chills, only surgery is , only medication is metoprolol for tachycardia/anxiety reportedly. She denies smoking, drinks very rare alcohol, denies recreational drugs. TRAVEL OUTSIDE OF THE [place] IN LAST 30 DAYS: No - Related Data Allergies/Adverse Reactions: No Known Allergies Allergy (Verified 11/18/18 00:32) Past Medical History - General Information source: Patient - Social History Smoking Status: Never Smoker Chew tobacco use (# tins/day): No Frequency of alcohol use: Rare Drug Abuse: None Lives with: Family Family History: Reviewed & Not Pertinent Patient has suicidal ideation: No Patient has homicidal ideation: No Renal/ Medical History: Denies: Hx Peritoneal Dialysis Psychiatric Medical History: Reports: Hx Anxiety - Immunizations Immunizations up to date: Yes Hx Diphtheria, Pertussis, Tetanus Vaccination: Yes Review of Systems - Review of Systems Constitutional: No symptoms reported EENT: No symptoms reported Cardiovascular: No symptoms reported Respiratory: No symptoms reported Gastrointestinal: See HPI Genitourinary: No symptoms reported Female Genitourinary: No symptoms reported Musculoskeletal: No symptoms reported Skin: No symptoms reported Hematologic/Lymphatic: No symptoms reported Neurological/Psychological: No symptoms reported Physical Exam - Vital signs Vitals: Temp Pulse Resp BP Pulse Ox 98.3 F 77 20 139/78 H 98 11/17/18 21:29 11/17/18 21:29 11/17/18 21:29 11/17/18 21:29 11/17/18 21:29 - Notes Notes: GENERAL: Alert, interacts well. No acute distress. Extremely talkative and pleasant HEAD: Normocephalic, atraumatic. EYES: Pupils equal, round, and reactive to light. Extraocular movements intact. ENT: Oral mucosa moist, tongue midline. Oropharynx unremarkable. Airway patent. NECK: Full range of motion. Supple. Trachea midline. LUNGS: Clear to auscultation bilaterally, no wheezes, rales, or rhonchi. No res piratory distress. HEART: Regular rate and rhythm. No murmur ABDOMEN: Minimal epigastric tenderness, no distention, no guarding, nontender abdomen otherwise. Bowel sounds present throughout. GENITOURINARY: Deferred EXTREMITIES: Moves all 4 extremities spontaneously. No edema, normal radial and dorsalis pedis pulses bilaterally. No cyanosis. BACK: no cervical, thoracic, lumbar midline tenderness. No saddle anesthesia, normal distal neurovascular exam. Moves all extremities in full range of motion. NEUROLOGICAL: Alert and oriented x3. Normal speech. Cranial nerves II through XII grossly intact. PSYCH: Normal affect, normal mood. SKIN: Warm, dry, normal turgor. No rashes or lesions noted. Course - Re-evaluation Re-evalutation: Patient with minimal epigastric tenderness on exam, she is quite well-appearing. Based on her very intermittent symptoms triggered by specific foods I does suspect gallbladder pathology. Patient does not have any heartburn, worsening symptoms with lying down, and she does not have any history of GERD. Symptoms are also very infrequent. CBC, chemistry unremarkable, lipase unremarkable. Urine nonspecific, patient denies any urinary symptoms, culture placed. EKG unchanged from prior, troponin negative. Ultrasound showing probable small gallbladder polyps, questionable appearance of the kidney but normal renal function on testing of the chemistry. I discussed with patient. Because of ultrasound, reported symptoms, patient will be referred to general surgery electively and she was given return precautions which were discussed in detail. Patient is nontender, no complaints, tolerating p.o. at time of discharge. Patient states appreciation and agreement. - Vital Signs Vital signs: Temp Pulse Resp BP Pulse Ox 97.6 F 66 14 123/77 100 11/18/18 01:46 11/18/18 01:46 11/18/18 01:46 11/18/18 01:46 11/18/18 01:46 - Laboratory Result Diagrams: 11/17/18 22:09 11/17/18 22:09 Laboratory results interpreted by me: 11/17/18 22:24 Ur Leukocyte Esterase TRACE H Discharge - Discharge Clinical Impression: Epigastric pain, Polyp of gallbladder Condition: Stable Disposition: HOME, SELF-CARE Additional Instructions: The ultrasound of your gallbladder indicates polyps, your symptoms are very s uggestive of gallbladder pain as well. Your remaining work-up is reassuring. For additional management and removal of the gallbladder follow-up with the surgical referral with Dr. Zavala, see listed referral and call for your appointment. Avoid fatty or greasy foods to reduce his gallbladder pains, if you do have gallbladder pains you can take [id number] medication such as ibuprofen 600 or 800 mg, you can also take [id number] famotidine with this to avoid upsetting the stomach as well. Come back if you are worse including severe pain that will not resolve, vomiting, fever, or any other concerning or worsening symptoms. Referrals: CAESAR ZAVALA MD [ACTIVE STAFF] - Follow up as needed
[2018-11-17 23:27] LABS: APPEARANCE,URINE SLIGHTLY-CLOUDY; BILIRUBIN,URINE NEGATIVE (NEGATIVE); COLOR,URINE YELLOW; GLUCOSE, URINE NEGATIVE (NEGATIVE); KETONES,URINE NEGATIVE (NEGATIVE); LEUKOCYTE ESTERASE,URINE TRACE (NEGATIVE); NITRITE,URINE NEGATIVE (NEGATIVE); PROTEIN,URINE NEGATIVE (NEGATIVE); URINE SPECIFIC GRAVITY 1.013; UROBILINOGEN,URINE NEGATIVE mg/dL (<2.0)
--- NOTE | 2018-11-18 00:49 | RADIOLOGY REPORT (SQ) ---
EXAM DESCRIPTION: US ABDOMEN LIMITED COMPLETED DATE/TME: 11/17/2018 23:11 CLINICAL HISTORY: 53 years, Female, epigastric pain COMPARISON: None. TECHNIQUE: LIMITATIONS: None. FINDINGS: There may be a couple of gallbladder polyps, both measuring 2-3 mm. No gallstones. No evidence of gallbladder wall thickening or pericholecystic fluid. The medical technologist generalist reported a negative sonographic Dowd sign. The liver is somewhat hyperechogenic, compatible with fatty infiltration. No evidence of biliary tree dilatation. There may be mild right renal cortical atrophy. No hydronephrosis. The pancreas was obscured by bowel gas. IMPRESSION: Possible small gallbladder polyps. Fatty liver. Possible mild right renal cortical atrophy. copyright 2010 [employer]- All Rights Reserved
[2018-11-18 01:48] VITALS: BP 123/77
--- NOTE | 2018-11-18 06:25 | EKG REPORT ---
SEVERITY:- ABNORMAL ECG - SINUS RHYTHM LEFT VENTRICULAR HYPERTROPHY : Confirmed by: Rito Diaz MD 18-Nov-2018 06:23:41
== END 2018-11-18 02:32 | disposition home or self-care (01) ==
LOC: ER 21:20
DX: K82.4 Cholesterolosis of gallbladder (principal); R10.13 Epigastric pain; R10.816 Epigastric abdominal tenderness; F41.9 Anxiety disorder, unspecified; R00.0 Tachycardia, unspecified; Z79.899 Other long term (current) drug therapy
CPT/HCPCS: 36415; 76705; 80053; 81001; 83690; 84484; 85025; 87086; 93005; 93010; 99284

== ENCOUNTER 2018-11-29 05:20 | Day surgery (SDC) | payer OTHER ==
[2018-11-29] MEDS ORDERED: SUGAMMADEX SODIUM 200 MG/2 ML SDV IV ONE (06:18)
[2018-11-29] MEDS ORDERED: DEXAMETHASONE SOD PHOSPHATE INJ 4 MG/1 ML VIAL ONE (06:18)
[2018-11-29] MEDS ORDERED: PROPOFOL INJ 200 MG/20 ML VIAL IV ONE (06:18)
[2018-11-29] MEDS ORDERED: MIDAZOLAM 2 MG/2 ML INJ ONE (06:18)
[2018-11-29] MEDS ORDERED: ONDANSETRON HCL INJ/PF 4 MG/2 ML SDV ONE (06:18)
[2018-11-29] MEDS ORDERED: FENTANYL CITRATE INJ/PF 100 MCG/2 ML AMPUL ONE (06:18)
[2018-11-29] MEDS ORDERED: LIDOCAINE 0.5% INJ-PF (5 MG/ML) 50 ML SDV ONE (06:27)
[2018-11-29] MEDS ORDERED: BUPIVACAINE HCL 0.25 % INJ/PF (2.5 MG/1 ML) 30 ML VIAL ONE (07:22)
[2018-11-29] MEDS ORDERED: CEFAZOLIN INJ 1 GM VIAL ONE (07:48)
[2018-11-29] MEDS ORDERED: CEFAZOLIN SODIUM 2 GM in DEXTROSE 5%-WATER 100 ML IV PRN (07:49)
[2018-11-29] MEDS ORDERED: PROMETHAZINE HCL INJ 25 MG/1 ML VIAL IV PRN ×2 (08:25)
[2018-11-29] MEDS ORDERED: DIPHENHYDRAMINE HCL 50 MG/ML VIAL IV PRN (08:25)
[2018-11-29] MEDS ORDERED: FENTANYL CITRATE INJ/PF 100 MCG/2 ML AMPUL IV PRN ×3 (08:25)
[2018-11-29] MEDS ORDERED: ONDANSETRON HCL INJ/PF 4 MG/2 ML SDV IV PRN (08:25)
[2018-11-29] MEDS ORDERED: MORPHINE SULFATE 10 MG/ML INJ IV PRN (08:25)
[2018-11-29] MEDS ORDERED: MEPERIDINE HCL/PF INJ 25 MG/1 ML DISP.SYRIN IV PRN (08:25)
[2018-11-29] MEDS ORDERED: BUPIVACAINE HCL 0.25 % INJ/PF (2.5 MG/1 ML) 30 ML VIAL INJ ONE (08:58)
[2018-11-29] MEDS ORDERED: HYDROCODONE/ACETAMINOPHEN 10-325 MG TABLET PO PRN (09:34)
[2018-11-29] MEDS ORDERED: ROCURONIUM BROMIDE INJ 50 MG/5 ML VIAL IV ONE (09:51)
[2018-11-29] MEDS ORDERED: SUCCINYLCHOLINE CHLORIDE INJ 200 MG/10 ML VIAL ONE (09:51)
[2018-11-29] MEDS ORDERED: IBUPROFEN 800 MG TABLET PO SCH (10:00)
[2018-11-29 11:04] VITALS: BP 106/60
--- NOTE | 2018-12-02 09:41 | Discharge Summary ---
Discharge Summary (SDC) - Discharge Final Diagnosis: Symptomatic cholelithiasis Date of Surgery: 11/29/18 Discharge Date: 11/29/18 Condition: Stable Forms: ASU Anesthesia D/C Instruction, Discharge POC-Surgical Service Treatment or Instructions: Discharge home. Diet as tolerated. Activity: No lifting more than 10 pounds x 2 weeks. Follow-up with me in 7 to 10 days. Referrals: CAESAR ZAPATA MD [ACTIVE STAFF] - 12/09/18 8:00 am Discharge Diet: As Tolerated Respiratory Treatments at Home: Deep Breathing/Coughing, Incentive Spirometer Discharge Activity: Balance Activity w/Rest, No Driving, No Lifting Over 10 Pounds, No Lifting/Push/Pulling, No tub bath, Walk Frequently Home Care Assistance: None Needed Report the Following to Your Physician Immediately: Shortness of Breath, Nausea, Vomiting, Yellow Skin, Fever over 101 Degrees, Unusual Bleeding, IV Site Infection Signs, Urinary Infection Signs
--- NOTE | 2018-12-02 09:47 | Operative Report ---
Nonrecallable Operative Report DATE OF SURGERY: 11/29/18 PREOPERATIVE DIAGNOSIS: Symptomatic cholelithiasis POSTOPERATIVE DIAGNOSIS: Same as above OPERATION: Laparoscopic cholecystectomy SURGEON: CAESAR CINTRON AUTOMATIC SPLICING MACHINE OPERATOR: REINA NAIK ANESTHESIA: GA TISSUE REMOVED OR ALTERED: Gallbladder COMPLICATIONS: None apparent ESTIMATED BLOOD LOSS: Minimal PROCEDURE: Drains/implants: None. Procedure in detail: After informed consent was obtained, the patient was brought to the operating room and laid in the supine position. The area of the abdomen was prepped and draped in a normal sterile fashion. An incision was created in the supraumbilical position. Dissection was carried through the subcutaneous tissues using sharp and blunt dissection. The cicatrix was grasped with a Noble clamp and retracted upwards. The linea alba fascia was incised sharply, the abdomen was entered sharply. The balloon trocar was inserted, and pneumoperitoneum was achieved. A subxiphoid 5 mm port was then placed under direct laparoscopic visualization. 2 more 5 mm ports were placed in the right upper quadrant in similar fashion. Atraumatic graspers were placed through the 5 mm ports. The gallbladder was retracted cephalad and laterally. Dissection was begun in the triangle of Calot. The cystic duct and cystic artery were fully visualized and skeletonized, seeing the liver through the triangle. Once the critical view of safety was obtained, the cystic duct and cystic artery were clipped and cut with laparoscopic instruments. The gallbladder was then removed from the liver using Bovie electrocautery. The gallbladder was grasped with a large clamp, and pulled out through the umbilicus. The camera was reinserted. The hilum was inspected. It was found to be free of any leakage of blood or bile. Once this was confirmed, the 5 mm trochars were removed under direct laparoscopic visualization. The supraumbilical trocar was removed, and pneumoperitoneum was relieved. The supraumbilical fascia was then closed using 0 Vicryl suture in [id number] fashion. The overlying skin was closed using 4-0 Vicryl Rapide suture in subcuticular fashion. Dressings were placed, and the procedure was concluded. All sponge, instrument, needle counts were correct x2. Condition: Stable. Reina Naik PA-C was scrubbed and present the entirety the procedure. She assisted with all portions of the procedure including placement of the trochars, manipulation of the gallbladder, removal of the gallbladder, closure of the fascia, and closure of the skin.
== END 2018-11-29 10:45 | disposition home or self-care (01) ==
LOC: OROUT 05:20
PROVIDERS: ATTEND Surgery
DX: K81.1 Chronic cholecystitis (principal)
CPT/HCPCS: 81025; 88304 ×2; 47562; J2250; J0690; J3490 ×3; J1100; J3010; J0330; J2405; J2704; 790; J7060

== ENCOUNTER 2019-01-10 18:32 | Emergency (ER) | payer OTHER ==
--- NOTE | 2019-01-10 19:14 | ER Document Report ---
ED Medical Screen (RME) - General Chief Complaint: Chest Pain Stated Complaint: CHEST PAIN,DIZZINESS Time Seen by Provider: 01/10/19 19:09 Mode of Arrival: Wheelchair Information source: Patient Notes: 53-year-old female presented to ED for nausea palpitation and dizziness. She states she was seen here about 6 weeks ago had her gallbladder out. She states 2 days ago they started decreasing her beta-jermaine and now she is nauseated with palpitations and dizziness. She states she thinks that is all stress. Patient is alert oriented respirations regular nonlabored speaking in full sente nces. TRAVEL OUTSIDE OF THE [place] IN LAST 30 DAYS: No - HPI Onset: This afternoon Onset/Duration: Intermittent Quality of pain: No pain Severity: None Pain Level: Denies Associated Symptoms: Dizzy/lightheaded, Nausea, Other - palpitations Exacerbated by: Denies Relieved by: Denies Similar symptoms previously: Yes Recently seen / treated by doctor: No - Related Data Smoking: Non-smoker Frequency of alcohol use: Occasional Drug Abuse: None Allergies/Adverse Reactions: No Known Allergies Allergy (Verified 11/18/18 00:32) Past Medical History - Past Medical History Cardiac Medical History: Reports: Hx Hypertension Denies: Hx Coronary Artery Disease, Hx Heart Attack Pulmonary Medical History: Denies: Hx Asthma, Hx Bronchitis, Hx COPD, Hx Pneumonia Neurological Medical History: Denies: Hx Cerebrovascular Accident, Hx Seizures Renal/ Medical History: Denies: Hx Peritoneal Dialysis Musculoskeltal Medical History: Reports Hx Arthritis Psychiatric Medical History: Reports: Hx Anxiety - Immunizations Immunizations up to date: Yes Hx Diphtheria, Pertussis, Tetanus Vaccination: No Physical Exam - Vital signs Vitals: Temp Pulse Resp BP Pulse Ox 98.4 F 94 18 128/65 H 98 01/10/19 18:55 01/10/19 18:55 01/10/19 18:55 01/10/19 18:55 01/10/19 18:55 Course - Vital Signs Vital signs: Temp Pulse Resp BP Pulse Ox 98.4 F 94 18 128/65 H 98 01/10/19 18:55 01/10/19 18:55 01/10/19 18:55 01/10/19 18:55 01/10/19 18:55
[2019-01-10 19:40] LABS: APPEARANCE,URINE SLIGHTLY-CLOUDY; BILIRUBIN,URINE NEGATIVE (NEGATIVE); COLOR,URINE COLORLESS; GLUCOSE, URINE NEGATIVE (NEGATIVE); KETONES,URINE NEGATIVE (NEGATIVE); PROTEIN,URINE NEGATIVE (NEGATIVE); URINE SPECIFIC GRAVITY 1.003; UROBILINOGEN,URINE NEGATIVE mg/dL (<2.0)
--- NOTE | 2019-01-10 19:48 | RADIOLOGY REPORT (SQ) ---
EXAM DESCRIPTION: CHEST 2 VIEWS COMPLETED DATE/TIME: 01/10/2019 7:37 pm REASON FOR STUDY: palpitations COMPARISON: 10/24/2018 TECHNIQUE: Frontal and lateral radiographic views of the chest acquired. NUMBER OF VIEWS: Two view. LIMITATIONS: None. FINDINGS: LUNGS AND PLEURA: No pneumothorax. No consolidation or pleural effusion. MEDIASTINUM AND HILAR STRUCTURES: Stable. HEART AND VASCULAR STRUCTURES: Stable. BONES: No acute findings. HARDWARE: None in the chest. OTHER: No other significant finding. IMPRESSION: NO ACUTE FINDINGS. TECHNICAL DOCUMENTATION: JOB ID: [id number] [place]-72 2010 [employer] All Rights Reserved Reading location - IP/workstation name: [email or web address]
[2019-01-10 19:50] LABS: ABSOLUTE BASOPHILS # (AUTO) 0.1 10^3/uL (0.0-0.2); ABSOLUTE EOSINOPHILS # (AUTO) 0.1 10^3/uL (0.0-0.6); ABSOLUTE LYMPHOCYTES (AUTO) 1.7 10^3/uL (0.5-4.7); ABSOLUTE MONOCYTES (AUTO) 0.4 10^3/uL (0.1-1.4); ABSOLUTE NEUT (AUTO) 4.1 10^3/uL (1.7-8.2); BASOPHILS % (AUTO) 0.9 % (0-2); EOSINOPHILS % (AUTO) 1.8 % (0-6); HEMOGLOBIN 13.4 g/dL (12.0-15.5); LYMPHOCYTES % (AUTO) 27.2 % (13-45); MEAN CORPUSCULAR HGB CONC 34.4 g/dL (32.0-36.0); MEAN CORPUSCULAR VOLUME 90 fl (80-97); MONOCYTES % (AUTO) 6.6 % (3-13); PLATELET COUNT 230 10^3/uL (150-450); RED BLOOD COUNT 4.32 10^6/uL (3.72-5.28); RED CELL DISTRIBUTION WIDTH 12.4 % (11.5-14.0); SEGMENTED NEUTROPHILS % (AUTO) 63.5 % (42-78); TOTAL CELLS COUNTED % (AUTO) 100 %; WHITE BLOOD COUNT 6.4 10^3/uL (4.0-10.5)
[2019-01-10 20:08] LABS: ALBUMIN 4.5 g/dL (3.5-5.0); ALKALINE PHOSPHATASE 63 U/L (38-126); ANION GAP 7 (5-19); ASPARTATE AMINO TRANSFERASE 35 U/L (14-36); BILIRUBIN,DIRECT 0.1 mg/dL (0.0-0.4); BILIRUBIN,TOTAL 0.4 mg/dL (0.2-1.3); BLOOD UREA NITROGEN 16 mg/dL (7-20); CALCIUM 9.9 mg/dL (8.4-10.2); CARBON DIOXIDE 29 mmol/L (22-30); CHLORIDE 101 mmol/L (98-107); GLUCOSE 101 mg/dL (75-110); POTASSIUM 4.2 mmol/L (3.6-5.0); TOTAL PROTEIN 7.7 g/dL (6.3-8.2)
--- NOTE | 2019-01-10 21:50 | ER Document Report ---
ED General - General Chief Complaint: Nausea Stated Complaint: CHEST PAIN,DIZZINESS Time Seen by Provider: 01/10/19 19:09 Mode of Arrival: Wheelchair TRAVEL OUTSIDE OF THE [place] IN LAST 30 DAYS: No - HPI Notes: Patient is a 53-year-old female with a history of recent cholecystectomy 6 weeks ago who presents complaining of having anxiousness and palpitations that occurred around 530 this evening that immediately resolved after about 30 seconds. Patient states that she became very emotional when she saw her mother's pressure wound to her hip which got her tearful and anxious. Patient states that this has happened before when she became emotional, but she is currently feeling well. Patient states that she is feeling "great" and would like to go home to eat her dinner. She has not had any recurrence. Denies drug allergies. Denies any drug or alcohol involvement. She has not had any dyspnea on exertion, shortness of breath, or chest pains. Pt was otherwise eval'd by cardiology 2 days ago and has been in the process of getting off of her low dose beta jermaine. Denies any prolonged immobilization, distance travel, recent surgery/trauma, personal cancer history, hormone use, smoking, or previous DVT/PE. Denies any headache, fever, head injury, neck pain, changes in vision/speech/mentation/hearing, URI, sore throat, chest pain, syncope, cough, shortness of breath, wheeze, dyspnea, abdominal pain, nausea/vomiting/diarrhea, urinary retention, dysuria, hematuria, loss of control of bowel or bladder, numbness/tingling, muscle paralysis/weakness, or rash. - Related Data Allergies/Adverse Reactions: No Known Allergies Allergy (Verified 11/18/18 00:32) Home Medications: Metoprolol Past Medical History - General Information source: Patient - Social History Smoking Status: Never Smoker Frequency of alcohol use: Occasional Drug Abuse: None Family History: Reviewed & Not Pertinent Patient has suicidal ideation: No Patient has homicidal ideation: No - Past Medical History Cardiac Medical History: Reports: Hx Hypertension Denies: Hx Coronary Artery Disease, Hx Heart Attack Pulmonary Medical History: Denies: Hx Asthma, Hx Bronchitis, Hx COPD, Hx Pneumonia Neurological Medical History: Denies: Hx Cerebrovascular Accident, Hx Seizures Renal/ Medical History: Denies: Hx Peritoneal Dialysis Musculoskeletal Medical History: Reports Hx Arthritis Psychiatric Medical History: Reports: Hx Anxiety - Immunizations Immunizations up to date: Yes Hx Diphtheria, Pertussis, Tetanus Vaccination: No Review of Systems - Review of Systems -: Yes All other systems reviewed and negative Physical Exam - Vital signs Vitals: Temp Pulse Resp BP Pulse Ox 98.4 F 94 18 128/65 H 98 01/10/19 18:55 01/10/19 18:55 01/10/19 18:55 01/10/19 18:55 01/10/19 18:55 - Notes Notes: PHYSICAL EXAMINATION: GENERAL: Well-appearing, well-nourished and in no acute distress. HEAD: Atraumatic, normocephalic. EYES: Pupils equal round and reactive to light, extraocular movements intact, sclera anicteric, conjunctiva are normal. ENT: Nares patent and without discharge. oropharynx clear without exudates. No tonsilar hypertrophy or erythema. Moist mucous membranes. NECK: Normal range of motion, supple without lymphadenopathy LUNGS: Breath sounds clear to auscultation bilaterally and equal. No wheezes rales or rhonchi. HEART: Regular rate and rhythm without murmurs, rubs, gallops. ABDOMEN: Soft, nontender, nondistended abdomen. No guarding, no rebound. Normal bowel sounds present. No CVA tenderness bilaterally. Musculoskeletal: FROM to passive/active. Strength 5+/5. Kim neg. No asymmetry to LE's. Extremities: No cyanosis, clubbing, or edema b/l. Peripheral pulses 2+. Capillary refill less than 3 seconds. NEUROLOGICAL: Normal speech, normal gait. PSYCH: Normal mood, normal affect. SKIN: Warm, Dry, normal turgor, no rashes or lesions noted. Course - Re-evaluation Re-evalutation: 01/10/19 21:48 Patient is an afebrile, well-hydrated 53-year-old female who presents to the ED with a very brief incident of palpitations 4 hours ago that resolved after about 30 seconds, suspect anxiety. Vitals are acceptable without any significant tachycardia, tachypnea, or hypoxia. PE is otherwise unremarkable. Patient is nontoxic-appearing and is tolerating p.o. without any difficulties. Pt is currently asymptomatic. CBC, CMP, EKG/cardiac enzyme, chest x-ray are all unremarkable for any acute pathology. Patient has a heart score of 2, Wells score of 0. Patient does not have any chest pain, dyspnea, or shortness of breath. Patient's presentation and symptomatology creates low suspicion for ACS, PE, pneumothorax, pericarditis, dissection, respiratory compromise, severe dehydration, sepsis, meningitis, or other systemic emergent condition at this time. Patient is aware that this condition can change from initial presentation and she needs to monitor symptoms closely and seek medical attention for any acute changes. Pt is feeling better and would like to go home. Recommend conservative measures for symptoms. Recheck with your PCM in 2-3 days. Consider consult with Cardiology. Return to the ED with any worsening/concerning symptoms otherwise as reviewed in discharge. Patient is in agreement. - Vital Signs Vital signs: Temp Pulse Resp BP Pulse Ox 98.4 F 94 18 120/65 98 01/10/19 19:10 01/10/19 18:55 01/10/19 19:10 01/10/19 19:13 01/10/19 19:10 - Laboratory Result Diagrams: 01/10/19 19:30 01/10/19 19:30 Laboratory results interpreted by me: 01/10/19 18:34 Urine Blood SMALL H Discharge - Discharge Clinical Impression: Palpitation, Anxiousness Condition: Stable Disposition: HOME, SELF-CARE Additional Instructions: Maintain adequate fluid and food intake Healthy diet Monitor blood pressure and heart rate daily and keep a log Monitor symptoms for any acute changes Recheck with your PCM in 2-3 days Consider a follow-up with cardiology Return to the ED with any worsening symptoms and/or development of fever, headache, chest pain, palpitations, syncope, shortness of breath, trouble breathing, abdominal pain, n/v/d, blood in stool/urine, loss of control of bowel/bladder, urinary retention, muscle weakness/paralysis, numbness/tingling, or other worsening symptoms that are concerning to you. Referrals: BHAVIK KOCH MD [ACTIVE STAFF] - Follow up as needed
[2019-01-10 22:02] VITALS: BP 111/68
--- NOTE | 2019-01-12 12:01 | EKG REPORT ---
SEVERITY:- NORMAL ECG - SINUS RHYTHM : Confirmed by: Mamta Cohn MD 12-Jan-2019 12:01:26
== END 2019-01-10 22:13 | disposition home or self-care (01) ==
LOC: ER 18:32
DX: R00.2 Palpitations (principal); F41.1 Generalized anxiety disorder; R11.0 Nausea; R42 Dizziness and giddiness; R07.9 Chest pain, unspecified; I10 Essential (primary) hypertension; Z90.49 Acquired absence of other specified parts of digestive tract
CPT/HCPCS: 36415; 71046; 80053; 81001; 83690; 84484; 85025; 93005; 93010; 99285